=== PATIENT | female | born 2000 | race African-American/Black ===

== ENCOUNTER 2019-02-26 17:16 | Emergency (ER) | payer OTHER ==
[2019-02-26] MEDS ORDERED: HYDROcodone/Acetaminophen 10/325 mg Tablet ONE (17:43)
== END 2019-02-26 17:48 | disposition home or self-care (01) ==
LOC: ERS 17:16
DX: S00.93XA Contusion of unspecified part of head, initial encounter (principal); W22.8XXA Striking against or struck by other objects, initial encounter
CPT/HCPCS: 99283